=== PATIENT | male | born 1950 | race Caucasian/White ===

== ENCOUNTER 2018-02-28 13:50 | Day surgery (SDC) | payer MEDICARE, OTHER ==
[2018-02-28] MEDS ORDERED: Xylocaine 1% Vial 30 ML PF IJ ONE (13:51)
[2018-02-28] MEDS ORDERED: Sensorcaine 0.25% 10 ML IJ ONE (13:51)
[2018-02-28] MEDS ORDERED: DIPRIVAN 200 MG/20 ML IV ONE (13:51)
[2018-02-28] MEDS ORDERED: Lactated Ringers 1,000 ML IV ONE (14:54)
--- NOTE | 2018-02-28 16:20 | XRAY ---
Indication: Bilateral lumbar spine sympathetic nerve block. Intraoperative fluoroscopy was provided for 1 minute 32 seconds. 10 digital spot images submitted for interpretation demonstrates a posterior spinal needle tip projecting over the left L2 pedicle. A second posterior spinal needle projects over the anterior L3-L4 interspace with small amount of contrast injected for needle tip placement. Correlate with intraoperative findings/report.
--- NOTE | 2018-02-28 16:22 | XRAY ---
1 minute and 32 seconds fluoroscopy time in surgery for lumbar spine sympathetic nerve block.
== END 2018-02-28 16:10 | disposition home or self-care (01) ==
LOC: SDC-PAIN 13:50
PROVIDERS: ATTEND Psychiatry & Neurology Pain Medicine
DX: M79.671 Pain in right foot (principal); M47.896 Other spondylosis, lumbar region
CPT/HCPCS: 64520; 72020; 77003; J2001; J2704; Q9966

== ENCOUNTER 2018-04-11 11:10 | Day surgery (SDC) | payer MEDICARE, OTHER ==
[2018-04-11] MEDS ORDERED: Xylocaine-Mpf 2% 5 Ml Vial IJ ONE (11:11)
[2018-04-11] MEDS ORDERED: Depo-Medrol 40 MG/ML IM ONE (11:11)
[2018-04-11] MEDS ORDERED: DIPRIVAN 200 MG/20 ML IV ONE (11:11)
--- NOTE | 2018-04-11 14:42 | XRAY ---
Indication: L4-S1 bilateral MBB. Intraoperative fluoroscopy was provided for 28 seconds. 3 digital spot images submitted for interpretation demonstrates posterior spinal needle tips projecting over the expected course of the left and right L4-S1 nerve roots. Correlate with intraoperative findings/report.
--- NOTE | 2018-04-11 14:44 | XRAY ---
28 seconds fluoroscopy time in surgery for bilateral L4-S1 MBB.
[2018-04-11] MEDS ORDERED: Lactated Ringers 1,000 ML IV ONE (15:01)
== END 2018-04-11 14:05 | disposition home or self-care (01) ==
LOC: SDC-PAIN 11:10
PROVIDERS: ATTEND Psychiatry & Neurology Pain Medicine
DX: M46.1 Sacroiliitis, not elsewhere classified (principal); M47.817 Spondylosis without myelopathy or radiculopathy, lumbosacral region; Z79.899 Other long term (current) drug therapy
CPT/HCPCS: 64493; 64494; 72020; 77002; J1030; J2704

== ENCOUNTER 2018-07-04 11:55 | Day surgery (SDC) | payer MEDICARE, OTHER ==
[2018-07-04] MEDS ORDERED: Ketamine HCl 50 MG/ML IV ONE (11:56)
[2018-07-04] MEDS ORDERED: DIPRIVAN 200 MG/20 ML IV ONE (11:56)
[2018-07-04] MEDS ORDERED: Xylocaine 1% Vial 30 ML PF IJ ONE (11:56)
[2018-07-04] MEDS ORDERED: Marcaine 0.5% SDV 10 ML IJ ONE (11:56)
--- NOTE | 2018-07-04 14:14 | XRAY ---
50 seconds fluoroscopy time in surgery for bilateral L3 nerve block.
--- NOTE | 2018-07-04 14:16 | XRAY ---
Indication: Bilateral L3 nerve block. Intraoperative fluoroscopy was provided for 50 seconds. 4 digital spot images submitted for interpretation demonstrates left and right posterior needle tips projecting anterior to the presumed L3 segment. Small amount of contrast injected for needle tip placement. Correlate with intraoperative findings/report.
[2018-07-04] MEDS ORDERED: Lactated Ringers 1,000 ML IV ONE (15:40)
== END 2018-07-04 14:05 | disposition home or self-care (01) ==
LOC: SDC-PAIN 11:55
PROVIDERS: ATTEND Psychiatry & Neurology Pain Medicine
DX: G90.523 Complex regional pain syndrome I of lower limb, bilateral (principal); Z79.899 Other long term (current) drug therapy; I10 Essential (primary) hypertension; G47.30 Sleep apnea, unspecified; E78.5 Hyperlipidemia, unspecified
CPT/HCPCS: 64520; 72020; 77002; J2001; J2704; Q9967

== ENCOUNTER 2018-07-25 10:04 | Day surgery (SDC) | payer MEDICARE, OTHER ==
[2018-07-25] MEDS ORDERED: DIPRIVAN 200 MG/20 ML IV ONE (10:05)
[2018-07-25] MEDS ORDERED: Ketamine HCl 50 MG/ML IJ ONE (10:05)
[2018-07-25] MEDS ORDERED: Xylocaine 1% Vial 30 ML PF IJ ONE (10:05)
[2018-07-25] MEDS ORDERED: Xylocaine-Mpf 2% 5 Ml Vial IJ ONE (10:05)
[2018-07-25] MEDS ORDERED: Sensorcaine 0.25% 10 ML IJ ONE (10:05)
[2018-07-25] MEDS ORDERED: Lactated Ringers 1,000 ML IV ONE (12:44)
--- NOTE | 2018-07-25 13:16 | XRAY ---
Indication: L2/L3 nerve block. Intraoperative fluoroscopy was provided for 1 minute 6 seconds. 6 digital spot images submitted for interpretation demonstrates right posterior needle tips projecting just anterior to the L2 and L3 segments. Small amount of contrast injected for needle tip placement. Correlate with intraoperative findings/report.
--- NOTE | 2018-07-25 13:18 | XRAY ---
1 minute and 6 seconds fluoroscopy time in surgery for right sympathetic nerve block.
== END 2018-07-25 11:35 | disposition home or self-care (01) ==
LOC: SDC-PAIN 10:04
PROVIDERS: ATTEND Psychiatry & Neurology Pain Medicine
DX: G90.521 Complex regional pain syndrome I of right lower limb (principal); I10 Essential (primary) hypertension; E78.5 Hyperlipidemia, unspecified; G47.00 Insomnia, unspecified; G47.30 Sleep apnea, unspecified; L03.90 Cellulitis, unspecified
CPT/HCPCS: 64520; 72020; 77002; J2001; J2704; Q9966

== ENCOUNTER 2018-08-01 13:15 | Day surgery (SDC) | payer MEDICARE, OTHER ==
[2018-08-01] MEDS ORDERED: Ketamine HCl 50 MG/ML IV ONE (13:16)
[2018-08-01] MEDS ORDERED: Sensorcaine 0.25% 10 ML IJ ONE (13:16)
[2018-08-01] MEDS ORDERED: Xylocaine-Mpf 2% 5 Ml Vial IJ ONE (13:16)
[2018-08-01] MEDS ORDERED: DIPRIVAN 200 MG/20 ML IV ONE (13:16)
[2018-08-01] MEDS ORDERED: Lactated Ringers 1,000 ML IV ONE (14:28)
--- NOTE | 2018-08-01 16:27 | XRAY ---
42 seconds of fluoroscopy was used in surgery for lumbar sympathetic nerve block at levels L2 and L3.
--- NOTE | 2018-08-02 05:24 | XRAY ---
Indication: Lumbar sympathetic nerve block at 2 levels, L2 and L3. Intraoperative fluoroscopy was provided for 42 seconds. 2 AP and 2 lateral digital spot films were obtained. Posterior needle tips are seen projected at the anterior left lateral margin of the lower aspect of the L2 vertebra and the L3 vertebra. A small amount of contrast was then injected for needle tip placement. Correlate with intraoperative findings/report.
== END 2018-08-01 14:51 | disposition home or self-care (01) ==
LOC: SDC-PAIN 13:15
PROVIDERS: ATTEND Psychiatry & Neurology Pain Medicine
DX: G90.522 Complex regional pain syndrome I of left lower limb (principal); I10 Essential (primary) hypertension; E78.5 Hyperlipidemia, unspecified; G47.00 Insomnia, unspecified; G47.30 Sleep apnea, unspecified
CPT/HCPCS: 64520; 72100; 77002; J2704; Q9966

== ENCOUNTER 2019-02-06 14:20 | Day surgery (SDC) | payer MEDICARE, OTHER ==
[2019-02-06] MEDS ORDERED: Sensorcaine 0.25% 10 ML IJ ONE (14:21)
[2019-02-06] MEDS ORDERED: Xylocaine-Mpf 2% 5 Ml Vial IJ ONE (14:21)
[2019-02-06] MEDS ORDERED: Ketamine HCl 50 MG/ML ONE (15:14)
[2019-02-06] MEDS ORDERED: DIPRIVAN 200 MG/20 ML IV ONE (15:14)
[2019-02-06] MEDS ORDERED: Lactated Ringers 1,000 ML IV ONE (15:20)
--- NOTE | 2019-02-06 22:43 | XRAY ---
Indication: L2-L3 sympathetic nerve block. Intraoperative fluoroscopy was provided for 1 minute 35 seconds. 4 digital spot images submitted for interpretation demonstrates left posterior needle tip projecting just anterior to the L2-L3 interspace. Small amount of contrast injected for needle tip placement. Correlate with intraoperative findings/report.
--- NOTE | 2019-02-06 22:51 | XRAY ---
1 minute and 35 seconds fluoroscopy time in surgery for right L2-3 sympathetic nerve block.
== END 2019-02-06 16:27 | disposition home or self-care (01) ==
LOC: SDC-PAIN 14:20
PROVIDERS: ATTEND Psychiatry & Neurology Pain Medicine
DX: G90.521 Complex regional pain syndrome I of right lower limb (principal); E78.5 Hyperlipidemia, unspecified; G47.30 Sleep apnea, unspecified; I10 Essential (primary) hypertension; G47.00 Insomnia, unspecified; Z79.899 Other long term (current) drug therapy
CPT/HCPCS: 64520; 72020; 77002; 99100; J2704; Q9966

== ENCOUNTER 2019-02-20 12:16 | Day surgery (SDC) | payer MEDICARE, OTHER ==
[2019-02-20] MEDS ORDERED: Xylocaine 1% Vial 30 ML PF IJ ONE (12:17)
[2019-02-20] MEDS ORDERED: Marcaine MPF 0.25% 30 ML IJ ONE (12:17)
[2019-02-20] MEDS ORDERED: Xylocaine-Mpf 2% 5 Ml Vial IJ ONE (12:17)
[2019-02-20] MEDS ORDERED: DIPRIVAN 200 MG/20 ML IV ONE (13:11)
[2019-02-20] MEDS ORDERED: Ketamine HCl 50 MG/ML ONE (13:11)
--- NOTE | 2019-02-20 14:30 | XRAY ---
Indication: Left sympathetic lumbar nerve block. Intraoperative fluoroscopy was provided for 46 seconds. 4 digital spot images submitted for interpretation demonstrates left posterior needle tip projecting just anterior to the L2 segment inferiorly. Small amount of contrast injected for needle tip placement. Correlate with intraoperative findings/report.
--- NOTE | 2019-02-20 14:32 | XRAY ---
46 seconds fluoroscopy time in surgery for left sympathetic lumbar nerve block.
[2019-02-20] MEDS ORDERED: Lactated Ringers 1,000 ML IV ONE (17:04)
== END 2019-02-20 13:45 | disposition home or self-care (01) ==
LOC: SDC-PAIN 12:16
PROVIDERS: ATTEND Psychiatry & Neurology Pain Medicine
DX: G90.522 Complex regional pain syndrome I of left lower limb (principal); E78.5 Hyperlipidemia, unspecified; G47.30 Sleep apnea, unspecified; I10 Essential (primary) hypertension; M54.5 Low back pain; G47.00 Insomnia, unspecified; Z79.899 Other long term (current) drug therapy
CPT/HCPCS: 64520; 72020; 77002; 77003; 99100; J2001; J2704; Q9966

== ENCOUNTER 2019-07-17 09:14 | Day surgery (SDC) | payer MEDICARE, OTHER ==
[2019-07-17] MEDS ORDERED: Xylocaine 1% Vial 30 ML PF IJ ONE (09:15)
[2019-07-17] MEDS ORDERED: Sensorcaine 0.25% 10 ML IJ ONE (09:15)
[2019-07-17] MEDS ORDERED: Ketamine HCl 50 MG/ML ONE (10:33)
[2019-07-17] MEDS ORDERED: DIPRIVAN 200 MG/20 ML IV ONE ×2 (10:33→10:55)
--- NOTE | 2019-07-17 11:38 | XRAY ---
Indication: Right sympathetic nerve block. Intraoperative fluoroscopy was provided for 1 minute 29 seconds. 3 digital spot images submitted for interpretation demonstrates right-sided posterior needle tips projecting over just anterior to the L1-L2 and L2-L3 interspaces anteriorly. Small amount of contrast injected for needle tip placement. Correlate with intraoperative findings/report.
--- NOTE | 2019-07-17 13:05 | XRAY ---
1 minute and 29 seconds fluoroscopy time in surgery for right lumbar sympathetic nerve block.
[2019-07-17] MEDS ORDERED: Lactated Ringers 1,000 ML IV ONE (13:49)
== END 2019-07-17 11:20 | disposition home or self-care (01) ==
LOC: SDC-PAIN 09:14
PROVIDERS: ATTEND Psychiatry & Neurology Pain Medicine
DX: G90.521 Complex regional pain syndrome I of right lower limb (principal); E78.5 Hyperlipidemia, unspecified; I10 Essential (primary) hypertension; G47.30 Sleep apnea, unspecified; G47.00 Insomnia, unspecified; Z79.899 Other long term (current) drug therapy
CPT/HCPCS: 64520; 72100; 77002; 99100; J2001; J2704; Q9966

== ENCOUNTER 2019-10-16 11:54 | Day surgery (SDC) | payer MEDICARE, OTHER ==
[2019-10-16] MEDS ORDERED: Xylocaine 1% Vial 30 ML PF IJ ONE (11:55)
[2019-10-16] MEDS ORDERED: CEFAZOLIN 2 GM-D5W BAG** 2 GM/50 ML ML IV ONE (11:55)
[2019-10-16] MEDS ORDERED: Sodium Chloride 0.9(Preservative Free) 10 ML IJ ONE (11:55)
[2019-10-16] MEDS ORDERED: Ketamine HCl 50 MG/ML ONE (13:38)
[2019-10-16] MEDS ORDERED: DIPRIVAN 200 MG/20 ML IV ONE (13:38)
[2019-10-16] MEDS ORDERED: Lactated Ringers 1,000 ML IV ONE (14:41)
--- NOTE | 2019-10-16 15:13 | XRAY ---
Indication: Spinal cord stimulator. Intraoperative fluoroscopy was provided for 1 minute 54 seconds. 5 digital spot images submitted for interpretation demonstrates posterior epidural stimulator lead terminating approximately T9 level. Correlate with intraoperative findings/report.
--- NOTE | 2019-10-16 16:40 | XRAY ---
1 minute 54 seconds of fluoroscopy was used in surgery for a spinal cord stimulator.
== END 2019-10-16 15:06 | disposition home or self-care (01) ==
LOC: SDC-PAIN 11:54
PROVIDERS: ATTEND Psychiatry & Neurology Pain Medicine
DX: G90.523 Complex regional pain syndrome I of lower limb, bilateral (principal); E78.5 Hyperlipidemia, unspecified; G47.30 Sleep apnea, unspecified; I10 Essential (primary) hypertension; M54.5 Low back pain; G47.00 Insomnia, unspecified; Z79.899 Other long term (current) drug therapy
CPT/HCPCS: 63650; 72100; 77002; 99100; J0690; J2001; J2704; C1897

== ENCOUNTER 2020-12-26 20:49 | Emergency (ER) | payer MEDICARE, OTHER ==
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
[2020-12-26 21:36] LABS: Absolute Neutrophil Ct (ANC) 9.63 (1.4-6.9); BASOPHIL % 0.2 % (0.0-0.4); Basophil (Absolute #) 0.03 (0-0.4); Eosinophil % 1.7 % (0.00-5.0); Eosinophil (Absolute #) 0.21 (0-0.5); Hematocrit 45.2 % (42-50); Hemoglobin 15.1 gm/dl (12.5-18.0); Lymphocyte (Absolute #) 1.75 (1.0-4.6); Lymphocytes % 13.8 % (24.0-44.0); Mean Cell Volume 89.3 fl (78-100); Mean Corpuscular Hemoglobin 29.8 pg (26-32); Mean Corpuscular Hgb Concent. 33.4 g/dl (32-36); Mean Platelet Volume 9.5 fl (7.5-11.0); Monocyte (Absolute #) 1.08 (0.0-1.3); Monocytes % 8.5 % (0.0-12.0); Neutrophil % 75.8 % (36.0-66.0); Platelet Count 278 K/mm3 (150-450); Red Blood Count 5.06 M/mm3 (4.1-5.6); Red Cell Distribution Width 12.8 % (11.5-14.0); White Blood Count 12.7 K/mm3 (4.0-10.5)
[2020-12-26 21:47] LABS: ALBUMIN 4.6 g/dL (3.5-5.0); ALKALINE PHOSPHATASE 58 U/L (38-126); ANION GAP 15.4 MEQ/L (5-15); BLOOD UREA NITROGEN 21 mg/dL (9-20); CHLORIDE 103 mmol/L (98-107); Calcium 9.7 mg/dL (8.4-10.2); Carbon Dioxide 27 mmol/L (22-30); Creatinine 1 0.99 mg/dL (0.66-1.25); EST GLOMERULAR FILTRATION RATE > 60.0 ML/MIN; Glucose 114 mg/dL (74-106); LIPASE 201 U/L (23-300); Potassium 3.8 mmol/L (3.5-5.1); SGOT/AST 27 U/L (17-59); SGPT/ALT 21 U/L (0-50); SODIUM 141 mmol/L (137-145); Total Protein 7.4 g/dL (6.3-8.2)
[2020-12-26] MEDS ORDERED: MORPHINE SULFATE 4 MG INJ IV ONE (22:42)
[2020-12-26] MEDS ORDERED: Zofran 4 MG/2 ML VIAL IV ONE (22:42)
[2020-12-26] MEDS ORDERED: MORPHINE SULFATE 4 MG INJ ONE (22:43)
[2020-12-26] MEDS ORDERED: Zofran 4 MG/2 ML VIAL ONE (22:43)
[2020-12-26 23:08] VITALS: BP 142/82; PULSE 76
[2020-12-26 23:13] VITALS: O2SAT 96
--- NOTE | 2020-12-27 07:30 | XRAY ---
Indication: Pain following fall. Comparison: Dec 19, 2012. 3 view left knee demonstrates mild osteopenia, mild medial joint space narrowing, tiny patella/lateral condyle/tibial tuberosity spurring, small proximal tibial plateau bone island, and tiny posterior fabella. No other bony, articular, or soft tissue abnormalities.
--- NOTE | 2020-12-27 07:31 | XRAY ---
Indication: Pain following fall. Multiple contiguous axial images obtained through the cervical spine. Sagittal and coronal reformatted images obtained. Comparison: December 07, 2014. Axial images negative for acute fracture, suspicious bone lesions, or spinal canal stenosis. There remains mild/moderate multilevel degenerative endplate spurring and bilateral degenerative facet hypertrophy. Sagittal and coronal reformatted images demonstrates normal alignment again with C4-C6 disc space loss. No acute compression fracture, subluxation, or jump facet. Normal appearing craniocervical junction. Visualized noncontrasted soft tissues demonstrates interval enlarging left inferior thyroid hypodense nodule measuring 4.5 x 4.5 cm. Lung apices demonstrates mild dependent atelectasis. Base of the brain unremarkable. Impression: 1. Negative acute fracture/subluxation. 2. Again multilevel degenerative changes. 3. Enlarging left thyroid hypodense nodule. Thyroid sonogram may yield further information if clinically warranted. Comment: Preliminary interpretation made by C. No critical discrepancy.
--- NOTE | 2020-12-27 07:34 | XRAY ---
Indication: Pain following fall. Multiple contiguous axial images obtained through the chest without contrast. Comparison: None Lungs demonstrates mild bilateral dependent atelectasis, minimal bibasilar fibrosis/scarring, and a few tiny left lung calcified granulomas. No suspicious pulmonary mass, infiltrate, effusion, or pneumothorax. Heart is not enlarged. Aorta is normal in course and caliber. A few tiny left hilar calcified nodes. No pathologic mediastinal lymphadenopathy. Bony thorax intact with mild osteopenia and flowing osteophytes throughout the spine. Limited upper abdomen demonstrates tiny splenic calcified granuloma and cholecystectomy clips. Impression: 1. Scattered atelectasis/scarring, chronic bony findings, and old granulomatous disease. 2. Remaining CT chest without contrast exam is negative. Comment: Preliminary interpretation made by [facility]. No critical discrepancy.
--- NOTE | 2020-12-27 07:39 | XRAY ---
Indication: Pain following fall. Multiple contiguous axial images obtained through the lumbar spine. Sagittal and coronal reformatted images obtained. Comparison: None Osseous structures demineralized consistent with patient's age. There is mild/moderate multilevel degenerative endplate spurring and L2-L3/L4-S1 degenerative vacuum disc phenomena. Mild/moderate L3-S1 degenerative facet hypertrophy. Superior endplate L2 demonstrates acute fracture with minimal 10% vertebral height loss. L5 vertebral body demonstrates remote appearing compression deformity with 50-75% height loss. Left posterior epidural stimulator device and 2 epidural leads are present. Sagittal and coronal reformatted images demonstrates normal lumbar lordosis. L5-S1 degenerative disc space loss. Visualized noncontrasted soft tissues images mild scattered aortoiliac calcifications. Impression: 1. L2 superior endplate acute fracture as detailed. 2. Osteopenia, multilevel degenerative spondylosis, remote L5 compression fracture, and epidural stimulator device/leads in situ. Comment: Preliminary interpretation made by C. No critical discrepancy.
== END 2020-12-26 23:16 | disposition home or self-care (01) ==
LOC: ED 20:49
DX: S32.000A Wedge compression fracture of unspecified lumbar vertebra, initial encounter for closed fracture (principal); V80.919A Animal-rider injured in unspecified transport accident, initial encounter
CPT/HCPCS: 36000; 36415; 71250; 72125; 72131; 73562; 80053; 83690; 84484; 85025; 93005; 96374; 96375; 99284; J2270; J2405

== ENCOUNTER 2021-08-20 09:55 | Emergency (ER) | payer MEDICARE, OTHER ==
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
[2021-08-20] MEDS ORDERED: BABY ASPIRIN 81 MG CHEW PO ONE (10:32)
[2021-08-20 10:50] LABS: Absolute Neutrophil Ct (ANC) 3.99 x10^3/uL (1.4-6.9); Basophil (Absolute #) 0.03 x10^3/uL (0-0.4); Eosinophil % 2.6 % (0.00-5.0); Eosinophil (Absolute #) 0.16 x10^3/uL (0-0.5); Hemoglobin 14.8 g/dL (12.5-18.0); Lymphocytes % 19.6 % (24.0-44.0); Mean Cell Volume 88.3 fL (78-100); Mean Corpuscular Hemoglobin 30.4 pg (26-32); Mean Corpuscular Hgb Concent. 34.4 g/dL (32-36); Mean Platelet Volume 9.4 fL (7.5-11.0); Monocytes % 11.5 % (0.0-12.0); Neutrophil % 65.3 % (36.0-66.0); Platelet Count 231 x10^3/uL (150-450); Red Blood Count 4.87 x10^6/uL (4.1-5.6); Red Cell Distribution Width 12.4 % (11.5-14.0); White Blood Count 6.1 x10^3/uL (4.0-10.5)
--- NOTE | 2021-08-20 10:52 | XRAY ---
Indication: Chest pressure. Short of breath. Comparison: January 10, 2019. Portable chest again demonstrates normal heart and lungs with a few incidental tiny calcified granulomas. Bony thorax intact again with mild osteopenia and degenerative changes. New epidural stimulator leads terminate T9-T10.
[2021-08-20] MEDS ORDERED: BABY ASPIRIN 81 MG CHEW ONE (10:59)
[2021-08-20 11:05] LABS: ALBUMIN 4.3 g/dL (3.5-5.0); ALKALINE PHOSPHATASE 59 U/L (38-126); ANION GAP 12.2 MEQ/L (5-15); BLOOD UREA NITROGEN 19 mg/dL (9-20); CHLORIDE 103 mmol/L (98-107); Calcium 9.4 mg/dL (8.4-10.2); Carbon Dioxide 26 mmol/L (22-30); Creatinine 1 1.22 mg/dL (0.66-1.25); EST GLOMERULAR FILTRATION RATE > 60.0 ML/MIN; Glucose 118 mg/dL (74-106); NT PRO BNP 29.8 pg/mL (0-900); Potassium 4.1 mmol/L (3.5-5.1); SGOT/AST 25 U/L (17-59); SGPT/ALT 28 U/L (0-50); SODIUM 137 mmol/L (137-145); Total Protein 7.2 g/dL (6.3-8.2)
[2021-08-20] MEDS ORDERED: Sodium Chloride 0.9% 500 ML 500 ML IV ONE ×2 (11:40→11:45)
--- NOTE | 2021-08-20 12:47 | XRAY ---
Indication: Short of breath, chest pressure, and elevated d-dimer. Multiple contiguous axial images obtained through the chest using a 9 cc Isovue 370 contrast and PE protocol. Comparison: December 26, 2020. Good opacification of the pulmonary arteries to include the lobar and segmental branches. No pulmonary embolus. Heart again not enlarged. Aorta remains normal in course and caliber without aneurysm. Stable tiny left hilar calcified nodes. No pathologic mediastinal/hilar lymphadenopathy. Visualized left thyroid gland remains enlarged with 3.5 cm hypodense nodule/cyst. Lungs again demonstrate mild dependent atelectasis, minimal bibasilar fibrosis/scarring, and a few tiny left lung calcified granulomas. No new pulmonary mass, infiltrate, or effusion. Bony thorax intact again with mild osteopenia, flowing osteophytes throughout spine, and epidural stimulator leads. Limited upper abdomen again demonstrates fatty liver, splenic calcified granulomas, and cholecystectomy clips. Impression: 1. Negative pulmonary embolus. No new/acute cardiopulmonary abnormalities. 2. Remaining CT chest unchanged again demonstrating scattered atelectasis/scarring, left thyroid hypodense nodule/cyst, chronic bony findings, and old granulomatous disease.
[2021-08-20 13:18] VITALS: BP 146/92; PULSE 64; O2SAT 96
== END 2021-08-20 13:23 | disposition home or self-care (01) ==
LOC: ED 09:55
DX: R07.89 Other chest pain (principal); R53.83 Other fatigue; I10 Essential (primary) hypertension; Z79.891 Long term (current) use of opiate analgesic; Z79.899 Other long term (current) drug therapy
CPT/HCPCS: 36000; 36415; 71045; 71260; 80053; 83880; 84484; 85025; 85379; 93005; 94760; 99284; A9270-GY

== ENCOUNTER 2021-12-01 06:54 | Day surgery (SDC) | payer MEDICARE, OTHER ==
[2021-12-01] MEDS ORDERED: Depo-Medrol 40 MG/ML IM ONE (06:55)
[2021-12-01] MEDS ORDERED: LIDOCAINE HCL 2% 100 MG/5 ML IJ ONE (06:55)
[2021-12-01] MEDS ORDERED: DIPRIVAN 200 MG/20 ML IV ONE (08:40)
--- NOTE | 2021-12-01 10:39 | XRAY ---
Indication: Bilateral L4-S1 MBB. Intraoperative fluoroscopy provided for 16 seconds. Single digital spot image submitted for interpretation demonstrates posterior needle tips projecting over the expected left and right L4-S1 nerve roots. Correlate with intraoperative findings/report. Incidental partially visualized left epidural stimulator leads.
--- NOTE | 2021-12-01 10:55 | XRAY ---
16 seconds of fluoroscopy was used in surgery for a bilateral L4-S1 MBB.
[2021-12-01] MEDS ORDERED: Lactated Ringers 1,000 ML IV ONE (12:38)
== END 2021-12-01 09:05 | disposition home or self-care (01) ==
LOC: SDC-PAIN 06:54
PROVIDERS: ATTEND Psychiatry & Neurology Pain Medicine
DX: M47.816 Spondylosis without myelopathy or radiculopathy, lumbar region (principal); Z79.899 Other long term (current) drug therapy
CPT/HCPCS: 64493; 64494; 72020; 77002; J1030; J2704

== ENCOUNTER 2022-09-21 10:11 | Day surgery (SDC) | payer MEDICARE, OTHER ==
[2022-09-21] MEDS ORDERED: BUPIVACAINE 0.5% VIAL IJ ONE (10:12)
[2022-09-21] MEDS ORDERED: Depo-Medrol 40 MG/ML IM ONE (10:12)
[2022-09-21] MEDS ORDERED: DIPRIVAN 200 MG/20 ML IV ONE (11:58)
[2022-09-21] MEDS ORDERED: Lactated Ringers 1,000 ML IV ONE (13:11)
--- NOTE | 2022-09-21 18:29 | XRAY ---
Indication: Bilateral L4-S1 MBB. Intraoperative fluoroscopy provided for 21 seconds. Single digital spot image submitted for interpretation demonstrates posterior needle tips projecting over the expected left and right L4-S1 nerve roots. Correlate with intraoperative findings/report. Incidental partially visualized left epidural stimulator leads.
--- NOTE | 2022-09-21 18:56 | XRAY ---
21 seconds of fluoroscopy was used in surgery for a bilateral L4-S1 MBB.
== END 2022-09-21 12:25 | disposition home or self-care (01) ==
LOC: SDC-PAIN 10:11
PROVIDERS: ATTEND Psychiatry & Neurology Pain Medicine
DX: M47.816 Spondylosis without myelopathy or radiculopathy, lumbar region (principal); Z79.899 Other long term (current) drug therapy
CPT/HCPCS: 64493; 64494; 72020; 77002; J1030; J2704

== ENCOUNTER 2022-10-06 11:07 | Day surgery (SDC) | payer MEDICARE, OTHER ==
[2022-10-06] MEDS ORDERED: Depo-Medrol 40 MG/ML IM ONE (11:08)
[2022-10-06] MEDS ORDERED: BUPIVACAINE 0.5% VIAL IJ ONE (11:08)
[2022-10-06] MEDS ORDERED: LIDOCAINE HCL 1% 50 MG/5 ML VL PF IJ ONE (11:08)
[2022-10-06] MEDS ORDERED: DIPRIVAN 200 MG/20 ML IV ONE (13:40)
--- NOTE | 2022-10-06 15:02 | XRAY ---
Indication: Right L4-S1 RFA. Intraoperative fluoroscopy provided for 19 seconds. 3 digital spot images submitted for interpretation demonstrates posterior needle tip projecting over the expected right L4-S1 nerve roots. Correlate with intraoperative findings/report. Incidental partially visualized left epidural stimulator leads.
--- NOTE | 2022-10-06 15:07 | XRAY ---
19 seconds of fluoroscopy was used in surgery for a right L4-S1 RFA.
[2022-10-06] MEDS ORDERED: Lactated Ringers 1,000 ML IV ONE (15:36)
== END 2022-10-06 14:10 | disposition home or self-care (01) ==
LOC: SDC-PAIN 11:07
PROVIDERS: ATTEND Psychiatry & Neurology Pain Medicine
DX: M47.816 Spondylosis without myelopathy or radiculopathy, lumbar region (principal); Z79.899 Other long term (current) drug therapy
CPT/HCPCS: 64635; 64636; 72100; 77002; 99100; J1030; J2001; J2704

== ENCOUNTER 2022-10-12 07:06 | Day surgery (SDC) | payer MEDICARE, OTHER ==
[2022-10-12] MEDS ORDERED: BUPIVACAINE 0.5% VIAL IJ ONE (07:07)
[2022-10-12] MEDS ORDERED: Depo-Medrol 40 MG/ML IM ONE (07:07)
[2022-10-12] MEDS ORDERED: LIDOCAINE HCL 1% 50 MG/5 ML VL PF IJ ONE (07:07)
[2022-10-12] MEDS ORDERED: DIPRIVAN 200 MG/20 ML IV ONE (08:40)
--- NOTE | 2022-10-12 10:17 | XRAY ---
Indication: Left L4-S1 RFA. Intraoperative fluoroscopy provided for 31 seconds. 3 digital spot image submitted for interpretation demonstrates posterior needle tips projecting over the expected left L4-S1 nerve roots. Correlate with intraoperative findings/report.
--- NOTE | 2022-10-12 10:41 | XRAY ---
31 seconds of fluoroscopy was used in surgery for a left L4-S1 RFA.
[2022-10-12] MEDS ORDERED: Lactated Ringers 1,000 ML IV ONE (11:13)
== END 2022-10-12 09:15 | disposition home or self-care (01) ==
LOC: SDC-PAIN 07:06
PROVIDERS: ATTEND Psychiatry & Neurology Pain Medicine
DX: M47.816 Spondylosis without myelopathy or radiculopathy, lumbar region (principal); Z79.899 Other long term (current) drug therapy
CPT/HCPCS: 64635; 64636; 72100; 77002; J1030; J2001; J2704

== ENCOUNTER 2023-08-18 20:20 | Emergency (ER) | payer MEDICARE, OTHER ==
[2023-08-18 20:23] VITALS: TEMP 98
--- NOTE | 2023-08-18 20:23 | ERPHSYRPT ---
- History of Present Illness Time Seen by Provider: 08/18/23 20:23 Historian: patient Exam Limitations: no limitations Physician History: This is an overweight 73-year-old white male patient of nurse practitioner Anthony and he sees vocational rehabilitation supervisor Dr. Landeros who presents to the emergency department with intermittent anterior superior substernal midline mild ache that has been present for approximately 3 days. He had another episode that lasted little bit longer prior to arrival to the emergency department. He felt he better have things looked at. Patient has a history of atrial fibrillation and is on metoprolol and a single baby aspirin a day. He states he currently has no pain at this time. Patient states that he underwent a cardiac catheterization 1 year ago and no cardiac stents were necessary at that time. He has never been diagnosed with a myocardial infarction in the past. He does not have hyperlipidemia. He is a former smoker. Timing/Duration: day(s), intermittent Activities at Onset: none Quality: aching (Mild) Location: substernal, central Chest Pain Radiation: no radiation Severity of Pain-Max: mild Severity of Pain-Current: none Associated Symptoms: denies symptoms Nitro Today/Relief: no nitro taken today Aspirin Treatment Today: 81 mg x 1, provided at home Allergies/Adverse Reactions: NKA Adverse Reaction (Verified 08/20/21 10:03) Home Medications: Hydrocodone/APAP 5/325 [[place] 5/325 mg] 1 tab PO TID PRN 09/29/12 [History] Docusate Sodium [Stool Softener] 1 tab PO DAILY 12/07/14 [History] Lisinopril 20 mg [Zestril 20 MG] 20 mg PO DAILY 12/07/14 [History] Gabapentin 600 mg PO TID 12/26/20 [History] Metoprolol Tartrate 25 mg [Lopressor 25MG Tab] 1 tab PO BID 08/20/21 [History] Aspirin EC 81 mg [Ecotrin 81 mg] 1 tab PO DAILY 08/18/23 [History] Atorvastatin Calcium 1 tab PO HS 08/18/23 [History] Cholecalciferol (Vitamin D3) [Vitamin D3] 1 tab PO DAILY 08/18/23 [History] Cyanocobalamin 100 Mcg [Vitamin B-12 100 Mcg] 50 mcg PO DAILY 08/18/23 [History] Omeprazole 40 mg PO DAILY 08/18/23 [History] Polyethylene Glycol 3350 [Miralax] 17 gm PO DAILY 08/18/23 [History] Hx Tetanus, Diphtheria Vaccination/Date Given: No Hx Influenza Vaccination/Date Given: Yes Hx Pneumococcal Vaccination/Date Given: Yes Travel Risk - International Travel Have you traveled outside of the country in past 3 weeks: No - Emerging Infectious Disease Are you exhibiting symptoms associated with any current EIDs: No - Review of Systems Constitutional: No Symptoms Eyes: No Symptoms Ears, Nose, & Throat: No Symptoms Respiratory: No Symptoms Cardiac: Chest Pain (None now on arrival to emergency department) Abdominal/Gastrointestinal: No Symptoms Genitourinary Symptoms: No Symptoms Musculoskeletal: No Symptoms Skin: No Symptoms Neurological: No Symptoms Psychological: No Symptoms Endocrine: No Symptoms Hematologic/Lymphatic: No Symptoms Immunological/Allergic: No Symptoms All Other Systems: Reviewed and Negative - Past Medical History Pertinent Past Medical History: Yes Neurological History: Peripheral Neuropathy ENT History: No Pertinent History Cardiac History: Hypertension Respiratory History: No Pertinent History Endocrine Medical History: No Pertinent History Musculoskeletal History: Osteoarthritis GI Medical History: No Pertinent History History: No Pertinent History Psycho-Social History: No Pertinent History Male Reproductive Disorders: No Pertinent History Other Medical History: INTERNAL TENS FOR B FOOT PAIN AND NEUROPATHY. MULTIPLE ANKLE FRACTURES, TOTAL ANKLE IN THE L ANKLE. A-FIB. - Past Surgical History Past Surgical History: Yes Neuro Surgical History: No Pertinent History Cardiac: No Pertinent History Respiratory: No Pertinent History Gastrointestinal: Cholecystectomy Genitourinary: No Pertinent History Musculoskeletal: Orthopedic Surgery Male Surgical History: No Pertinent History Other Surgical History: total left ankle replacement 06/19/14. right ankle repair 07/08/14. surgery on jaw in 1968. surgery on right arm d/t fracture in 1968. surgical repair of bilateral ankles in 1968 - Social History Smoking Status: Former smoker Exposure to second hand smoke: No Drug Use: none Patient Lives Alone: No - Nursing Vital Signs Nursing Vital Signs: Initial Vital Signs Pulse Rate 64 08/18/23 20:15 Respiratory Rate 20 08/18/23 20:15 Blood Pressure 148/87 08/18/23 20:15 O2 Sat by Pulse Oximetry 95 08/18/23 20:15 Pain Scale Pain Intensity 0 - Physical Exam General Appearance: no apparent distress, alert, anxiety, obese Eye Exam: PERRL/EOMI, eyes nml inspection Ears, Nose, Throat Exam: normal ENT inspection, moist mucous membranes Neck Exam: normal inspection, non-tender, supple, full range of motion Respiratory Exam: normal breath sounds, lungs clear, airway intact, No chest tenderness, No respiratory distress Cardiovascular Exam: regular rate/rhythm, normal heart sounds, normal peripheral pulses Gastrointestinal/Abdomen Exam: soft, normal bowel sounds, No tenderness Rectal Exam: not done Back Exam: normal inspection, normal range of motion, No CVA tenderness, No vertebral tenderness Extremity Exam: normal inspection, normal range of motion, pelvis stable Neurologic Exam: alert, oriented x 3, cooperative, manager regulatory II-XII nml as tested, normal mood/affect, nml cerebellar function, nml station & gait, sensation nml Skin Exam: normal color, warm, dry Lymphatic Exam: No adenopathy SpO2 Interpretation: borderline oxygenation SpO2: 94 O2 Delivery: Room Air - Course Nursing assessment & vital signs reviewed: Yes EKG Interpreted by Me: RATE (65), NORMAL AXIS, NORMAL INTERVALS, Right Bundle Branch Block, Other (No acute ischemic changes on today's twelve-lead EKG. The QTc is 480. 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 STAT Care 08/18/23 20:30 Active EKG-ER Only STAT Care 08/18/23 20:29 Active IV Insertion STAT Care 08/18/23 20:29 Active Pulse Oximetry (ED) STAT Care 08/18/23 20:29 Active CHEST 1 VIEW (PORTABLE) Stat Exams 08/18/23 20:29 Taken CBC W DIFF Stat Lab 08/18/23 20:34 Completed CMP Stat Lab 08/18/23 20:34 Completed D-DIMER QUANTITATIVE Stat Lab 08/18/23 20:34 Completed MAGNESIUM Stat Lab 08/18/23 20:34 Completed NT PRO BNPII Stat Lab 08/18/23 20:34 Completed PROTIME WITH INR Stat Lab 08/18/23 20:34 Completed TROPONIN Q4H Lab 08/18/23 20:34 Completed TROPONIN Q4H Lab 08/19/23 00:30 Ordered TROPONIN Q4H Lab 08/19/23 04:30 Ordered TROPONIN Stat Lab 08/18/23 23:01 Completed Medication Summary Discontinued Medications Generic Name Dose Route Start Last Admin Trade Name Adriana PRN Reason Stop Dose Admin Aspirin 243 mg 08/18/23 20:29 08/18/23 20:36 Aspirin 81 Mg Tab.Chew PO 08/18/23 20:30 243 mg STAT ONE Administration Aspirin Confirm 08/18/23 20:34 Aspirin 81 Mg Tab.Chew Administered 08/18/23 20:35 Dose 243 mg .ROUTE .STK-MED ONE Lab/Rad Data: Laboratory Result Diagrams 08/18/23 20:34 08/18/23 20:34 Laboratory Results 08/18/23 08/18/23 08/18/23 Range/Units 23:01 20:34 20:34 WBC (4.23-9.07) x10^3/uL RBC (4.63-6.08) x10^6/uL Hgb (13.7-17.5) g/dL Hct (40.1-51.0) % MCV (79.0-92.2) fL MCH (25.7-32.2) pg MCHC (32.3-36.5) g/dL RDW (11.6-14.4) % Plt Count (163-337) x10^3/uL MPV (9.4-12.4) fL Gran % (34.0-67.9) % Immature Gran % (Auto) (0.001-0.429) % Nucleat RBC Rel Count (0.00-0.2) % Eos # (Auto) (0.04-0.54) x10^3/uL Immature Gran # (Auto) (0.001-0.031) x10^3u/L Absolute Lymphs (auto) (1.32-3.57) x10^3/uL Absolute Monos (auto) (0.30-0.82) x10^3/uL Absolute Nucleated RBC (0.00-0.012) x10^3u/L Lymphocytes % (21.8-53.1) % Monocytes % (5.3-12.2) % Eosinophils % (0.8-7.0) % Basophils % (0.2-1.2) % Absolute Granulocytes (1.78-5.38) x10^3/uL Basophils # (0.01-0.08) x10^3/uL PT 10.3 (9.4-12.5) SECONDS INR 0.94 (0.8-3.0) D-Dimer 0.47 (0.0-0.50) mg/L Sodium (135-145) mmol/L Potassium (3.5-5.1) mmol/L Chloride (98-107) mmol/L Carbon Dioxide (22-30) mmol/L Anion Gap (5-15) MEQ/L BUN (9-20) mg/dL Creatinine (0.66-1.25) mg/dL Estimated GFR ML/MIN Glucose (74-106) mg/dL Calcium (8.4-10.2) mg/dL Magnesium (1.6-2.3) mg/dL Total Bilirubin (0.2-1.3) mg/dL AST (17-59) U/L ALT (0-50) U/L Alkaline Phosphatase (38-126) U/L Troponin I < 0.012 < 0.012 (0.000-0.033) ng/mL NT-Pro-B Natriuret Pep 33.6 (<300) pg/mL Serum Total Protein (6.3-8.2) g/dL Albumin (3.5-5.0) g/dL 08/18/23 08/18/23 Range/Units 20:34 20:34 WBC 6.5 (4.23-9.07) x10^3/uL RBC 4.85 (4.63-6.08) x10^6/uL Hgb 14.3 (13.7-17.5) g/dL Hct 41.4 (40.1-51.0) % MCV 85.4 (79.0-92.2) fL MCH 29.5 (25.7-32.2) pg MCHC 34.5 (32.3-36.5) g/dL RDW 12.4 (11.6-14.4) % Plt Count 254 (163-337) x10^3/uL MPV 9.6 (9.4-12.4) fL Gran % 67.9 (34.0-67.9) % Immature Gran % (Auto) 0.5 H (0.001-0.429) % Nucleat RBC Rel Count 0.0 (0.00-0.2) % Eos # (Auto) 0.23 (0.04-0.54) x10^3/uL Immature Gran # (Auto) 0.03 (0.001-0.031) x10^3u/L Absolute Lymphs (auto) 1.31 L (1.32-3.57) x10^3/uL Absolute Monos (auto) 0.47 (0.30-0.82) x10^3/uL Absolute Nucleated RBC 0.00 (0.00-0.012) x10^3u/L Lymphocytes % 20.2 L (21.8-53.1) % Monocytes % 7.3 (5.3-12.2) % Eosinophils % 3.6 (0.8-7.0) % Basophils % 0.5 (0.2-1.2) % Absolute Granulocytes 4.40 (1.78-5.38) x10^3/uL Basophils # 0.03 (0.01-0.08) x10^3/uL PT (9.4-12.5) SECONDS INR (0.8-3.0) D-Dimer (0.0-0.50) mg/L Sodium 140 (135-145) mmol/L Potassium 3.8 (3.5-5.1) mmol/L Chloride 107 (98-107) mmol/L Carbon Dioxide 23 (22-30) mmol/L Anion Gap 14.2 (5-15) MEQ/L BUN 21 H (9-20) mg/dL Creatinine 0.96 (0.66-1.25) mg/dL Estimated GFR 82.9 ML/MIN Glucose 141 H (74-106) mg/dL Calcium 9.3 (8.4-10.2) mg/dL Magnesium 1.6 (1.6-2.3) mg/dL Total Bilirubin 0.50 (0.2-1.3) mg/dL AST 18 (17-59) U/L ALT 20 (0-50) U/L Alkaline Phosphatase 68 (38-126) U/L Troponin I (0.000-0.033) ng/mL NT-Pro-B Natriuret Pep (<300) pg/mL Serum Total Protein 6.8 (6.3-8.2) g/dL Albumin 4.3 (3.5-5.0) g/dL - Progress Progress: improved, re-examined Air Movement: good Progress Note: 08/18/23 20:47 My medical decision making and the workup performed is based on review of the patient's past medical history, review of the patient's medication list, review the patient drug allergy list, history present illness and physical findings on examination. The workup in the patient clued placement of intravenous line, twelve-lead EKG, troponin level, D-dimer level, BNP level, CBC, CMP, magnesium level and chest x-ray. Differential diagnoses include but is not limited to pneumonia, muscle skeletal pain, myocardial infarction, electrolyte abnormalities, arrhythmias. 08/18/23 23:37 I interpreted patient's laboratory data results. The patient lab results do not show any acute, emergent medical issue. I also interpreted the patient's 3-madelaine r troponin level which is also normal. I interpreted the 3-hour twelve-lead EKG. It shows a heart rate of 62 bpm and right bundle branch block. This is no change from the twelve-lead EKG performed approximately 3 hours ago during this emergency room visit. The patient has no shortness of breath and he denies chest pain at the time of discharge. Patient has an appointment to see his vocational rehabilitation supervisor on 08/21/2023. 08/18/23 23:38 I interpreted the preliminary report on this patient's chest x-ray. Patient appears to have chronic changes without evidence of any acute cardiopulmonary process. 08/18/23 23:39 Blood Culture(s) Obtained: No Antibiotics given: No Counseled pt/family regarding: lab results, diagnosis, need for follow-up, rad results Medical Desision Making - Diagnostic Testing Diagnostic test were ordered, analyzed, and reviewed by me: Yes Radiological Interpretation: Interpreted by me - Risk of complications Low Risk: Low risk of morbidity from additional dx testing or treatment - Departure Departure Disposition: Home Clinical Impression: Nonspecific chest pain Condition: Stable Critical Care Time: No Referrals: JOSE ALFREDO PINK NP [Primary Care Provider] - Follow up/PCP as directed Additional Instructions: Your appointment to see your vocational rehabilitation supervisor on Monday morning, 08/21/2023. If symptoms recur, return to the emergency department for reevaluation and management. Call your medications as prescribed.
[2023-08-18] MEDS ORDERED: BABY ASPIRIN 81 MG CHEW ONE (20:34)
[2023-08-18] MEDS: BABY ASPIRIN 81 MG CHEW PO ONE (20:36)
[2023-08-18 20:38] LABS: BASOPHIL % 0.5 % (0.2-1.2); Basophil (Absolute #) 0.03 x10^3/uL (0.01-0.08); Eosinophil % 3.6 % (0.8-7.0); Eosinophil (Absolute #) 0.23 x10^3/uL (0.04-0.54); Hematocrit 41.4 % (40.1-51.0); Hemoglobin 14.3 g/dL (13.7-17.5); IMMATURE GRAN # 0.03 x10^3u/L (0.001-0.031); IMMATURE GRAN % 0.5 % (0.001-0.429); Lymphocyte (Absolute #) 1.31 x10^3/uL (1.32-3.57); Lymphocytes % 20.2 % (21.8-53.1); Mean Cell Volume 85.4 fL (79.0-92.2); Mean Corpuscular Hemoglobin 29.5 pg (25.7-32.2); Mean Corpuscular Hgb Concent. 34.5 g/dL (32.3-36.5); Mean Platelet Volume 9.6 fL (9.4-12.4); Monocyte (Absolute #) 0.47 x10^3/uL (0.30-0.82); Monocytes % 7.3 % (5.3-12.2); Neutrophil % 67.9 % (34.0-67.9); Platelet Count 254 x10^3/uL (163-337); Red Blood Count 4.85 x10^6/uL (4.63-6.08); Red Cell Distribution Width 12.4 % (11.6-14.4); White Blood Count 6.5 x10^3/uL (4.23-9.07)
[2023-08-18 20:52] LABS: D-DIMER QUANTITATIVE 0.47 mg/L (0.0-0.50); INR 0.94 (0.8-3.0); PROTIME 10.3 SECONDS (9.4-12.5)
[2023-08-18 20:54] LABS: ALBUMIN 4.3 g/dL (3.5-5.0); ANION GAP 14.2 MEQ/L (5-15); BILIRUBIN,TOTAL 0.5 mg/dL (0.2-1.3); Calcium 9.3 mg/dL (8.4-10.2); Creatinine 1 0.96 mg/dL (0.66-1.25); EST GLOMERULAR FILTRATION RATE 82.9 ML/MIN; MAGNESIUM 1.6 mg/dL (1.6-2.3); Potassium 3.8 mmol/L (3.5-5.1); Total Protein 6.8 g/dL (6.3-8.2)
[2023-08-18 21:05] LABS: NT PRO BNPII 33.6 pg/mL (<300); TROPONIN < 0.012 ng/mL (0.000-0.033)
[2023-08-18 23:20] VITALS: BP 137/81; PULSE 62; RESP 17
[2023-08-18 23:40] VITALS: O2SAT 94
--- NOTE | 2023-08-19 07:16 | XRAY ---
Indication: Chest pain. Comparison: August 20, 2021 Portable chest remains inflated and clear with a few incidental tiny calcified granulomas. Heart not enlarged. Bony thorax intact again with osteopenia, mild degenerative changes, and epidural leads terminating T9-T10. Impression: Continued nonacute chest with chronic features.
== END 2023-08-18 23:55 | disposition home or self-care (01) ==
LOC: ED 20:20
DX: R07.9 Chest pain, unspecified (principal); Z79.899 Other long term (current) drug therapy
CPT/HCPCS: 36000; 36415; 71045; 80053; 83735; 83880; 84484; 85025; 85379; 85610; 93005; 93041; 94760; 99284; A9270-GY

== ENCOUNTER 2024-10-07 11:34 | Emergency (ER) | payer MEDICARE, OTHER ==
[2024-10-07 11:54] VITALS: RESP 16; TEMP 97
--- NOTE | 2024-10-07 13:01 | ERPHSYRPT ---
- History of Present Illness Time Seen by Provider: 10/07/24 11:40 Source: patient Exam Limitations: no limitations Patient Subjective Stated Complaint: patient stated that he is experiencing constipation and noticed when he went to the bathroom this morning he noticed blood after straining Triage Nursing Assessment: patient presents to ed with complaints of constipation, patient's abdomen soft, nontender, bowel sounds active x4 quadrants, no complaints of pain, skin N/W/D, vitals WNL Physician History: Patient is a 74-year-old male presents to our ED as a referral from his primary care provider for evaluation of rectal bleeding. Patient states that he felt bloated at home he thought he was constipated. Patient forced a small bowel movement and states that he had significant rectal bleeding at that time. No active bleeding at the moment. Patient states his abdominal pain has since significantly improved. No trauma no fever. Patient reports feeling lightheaded transiently at the time of the rectal bleeding but is currently asymptomatic. Patient otherwise feels well. He voices no other complaints or concerns at this time. Portions of this note were created with voice recognition technology. There may be grammatical, spelling, punctuation or sound alike errors Timing/Duration: today Severity: moderate Modifying Factors: Improves With: nothing Associated Symptoms: denies symptoms Allergies/Adverse Reactions: NKA Adverse Reaction (Verified 10/07/24 11:54) Home Medications: Hydrocodone/APAP 5/325 [Braggadocio 5/325 mg] 10 - 325 mg PO TID PRN 09/29/12 [History] Docusate Sodium [Stool Softener] 1 tab PO DAILY 12/07/14 [History] Gabapentin 600 mg PO TID 12/26/20 [History] Metoprolol Tartrate 25 mg [Lopressor 25MG Tab] 1 tab PO BID 08/20/21 [History] Aspirin EC 81 mg [Ecotrin 81 mg] 1 tab PO DAILY 08/18/23 [History] Atorvastatin Calcium 1 tab PO HS 08/18/23 [History] Cholecalciferol (Vitamin D3) [Vitamin D3] 25 mcg PO DAILY 08/18/23 [History] Cyanocobalamin 100 Mcg [Vitamin B-12 100 Mcg] 5,000 mcg PO DAILY 08/18/23 [History] Omeprazole 40 mg PO DAILY 08/18/23 [History] Polyethylene Glycol 3350 [Miralax] 17 gm PO DAILY 08/18/23 [History] Alpha Lipoic Acid 200 mg PO BID 10/07/24 [History] Amlodipine Besylate 5 mg [Norvasc 5 mg] 2.5 mg PO DAILY 10/07/24 [History] Meloxicam 7.5 mg PO DAILY PRN 10/07/24 [History] Hx Tetanus, Diphtheria Vaccination/Date Given: Yes Hx Influenza Vaccination/Date Given: Yes Hx Pneumococcal Vaccination/Date Given: Yes Travel Risk - International Travel Have you traveled outside of the country in past 3 weeks: No - Emerging Infectious Disease Are you exhibiting symptoms associated with any current EIDs: No - Review of Systems Constitutional: No Symptoms, No Fever, No Chills Eyes: No Symptoms Ears, Nose, & Throat: No Symptoms Respiratory: No Symptoms, No Cough, No Dyspnea Cardiac: No Symptoms, No Chest Pain, No Edema, No Syncope Abdominal/Gastrointestinal: No Symptoms, No Abdominal Pain, No Nausea, No Vomiting, No Diarrhea Genitourinary Symptoms: No Symptoms, No Dysuria Musculoskeletal: No Symptoms, No Back Pain, No Neck Pain Skin: No Symptoms, No Rash Neurological: No Symptoms, No Dizziness, No Focal Weakness, No Sensory Changes Psychological: No Symptoms Endocrine: No Symptoms Hematologic/Lymphatic: No Symptoms Immunological/Allergic: No Symptoms All Other Systems: Reviewed and Negative - Past Medical History Pertinent Past Medical History: Yes Neurological History: Peripheral Neuropathy ENT History: No Pertinent History Cardiac History: Hypertension Respiratory History: No Pertinent History Endocrine Medical History: No Pertinent History Musculoskeletal History: Osteoarthritis GI Medical History: No Pertinent History History: No Pertinent History Psycho-Social History: No Pertinent History Male Reproductive Disorders: No Pertinent History Other Medical History: INTERNAL TENS FOR B FOOT PAIN AND NEUROPATHY. MULTIPLE ANKLE FRACTURES, TOTAL ANKLE IN THE L ANKLE. A-FIB. - Past Surgical History Past Surgical History: Yes Neuro Surgical History: No Pertinent History Cardiac: No Pertinent History Respiratory: No Pertinent History Gastrointestinal: Cholecystectomy Genitourinary: No Pertinent History Musculoskeletal: Orthopedic Surgery Male Surgical History: No Pertinent History Other Surgical History: total left ankle replacement 06/19/14. right ankle repair 07/08/14. surgery on jaw in 1968. surgery on right arm d/t fracture in 1968. surgical repair of bilateral ankles in 1968 - Social History Smoking Status: Former smoker Exposure to second hand smoke: No Drug Use: none - Social Determinants of Health Will the patient participate in the screening: Yes Do you worry about a steady place to live?: No Do you have any problems with any of the following?: No known problems In the past 12 months,have you had to go without utilities?: No Transportation Issues: No Has anyone in your support network made you feel unsafe?: No Have you or anyone in your house had to go w/o enough food: No - Nursing Vital Signs Nursing Vital Signs: Initial Vital Signs Temperature 97 F 10/07/24 11:35 Pulse Rate 62 10/07/24 11:35 Respiratory Rate 16 10/07/24 11:35 Blood Pressure 146/89 10/07/24 11:35 O2 Sat by Pulse Oximetry 99 10/07/24 11:35 Pain Scale Pain Intensity 0 - Physical Exam General Appearance: no apparent distress, alert Eye Exam: PERRL/EOMI, eyes nml inspection Ears, Nose, Throat Exam: normal ENT inspection, TMs normal, pharynx normal, moist mucous membranes Neck Exam: normal inspection, full range of motion Respiratory Exam: normal breath sounds, lungs clear, No respiratory distress Cardiovascular Exam: regular rate/rhythm, normal heart sounds, normal peripheral pulses Gastrointestinal/Abdomen Exam: soft, normal bowel sounds, No tenderness, No mass Back Exam: normal inspection, normal range of motion, No CVA tenderness, No vertebral tenderness Extremity Exam: normal inspection, normal range of motion, pelvis stable Neurologic Exam: alert, oriented x 3, cooperative, normal mood/affect, sensation nml, No motor deficits Skin Exam: normal color, warm, dry, No rash Lymphatic Exam: No adenopathy SpO2 Interpretation: normal SpO2: 99 O2 Delivery: Room Air - Course Nursing assessment & vital signs reviewed: Yes - CT Exams Abdomen/Pelvis CT Interpretation: Tele-radiologist Report (Duodenal diverticulum, fecal impaction, T10 lytic lesion/hemangioma) Ordered Tests: Active Orders 24 hr Category Date Time Status IV Insertion STAT Care 10/07/24 12:27 Active ABDOMEN AND PELVIS W/0 CONTRAS [CT] Stat Exams 10/07/24 12:28 Completed CBC W DIFF Stat Lab 10/07/24 12:43 Completed CMP Stat Lab 10/07/24 12:43 Completed LIPASE Stat Lab 10/07/24 12:43 Completed UA W/RFX UR CULTURE Stat Lab 10/07/24 13:26 Completed Medication Summary Generic Name Dose Route Start Last Admin Trade Name Adriana PRN Reason Stop Dose Admin Sodium Chloride 1,000 mls @ 100 mls/hr 10/07/24 12:30 10/07/24 12:30 Sodium Chloride 0.9% 1000 Ml IV 11/06/24 12:29 100 mls/hr .Q10H EZEKIEL Administration Lab/Rad Data: Laboratory Result Diagrams 10/07/24 12:43 10/07/24 12:43 Laboratory Results 10/07/24 10/07/24 10/07/24 Range/Units 13:26 12:43 12:43 WBC 10.5 H (4.23-9.07) x10^3/uL RBC 5.11 (4.63-6.08) x10^6/uL Hgb 14.5 (13.7-17.5) g/dL Hct 44.2 (40.1-51.0) % MCV 86.5 (79.0-92.2) fL MCH 28.4 (25.7-32.2) pg MCHC 32.8 (32.3-36.5) g/dL RDW 13.3 (11.6-14.4) % Plt Count 233 (163-337) x10^3/uL MPV 10.0 (9.4-12.4) fL Gran % 83.4 H (34.0-67.9) % Immature Gran % (Auto) 0.6 H (0.001-0.429) % Nucleat RBC Rel Count 0.0 (0.00-0.2) % Eos # (Auto) 0.17 (0.04-0.54) x10^3/uL Immature Gran # (Auto) 0.06 H (0.001-0.031) x10^3u/L Absolute Lymphs (auto) 0.81 L (1.32-3.57) x10^3/uL Absolute Monos (auto) 0.66 (0.30-0.82) x10^3/uL Absolute Nucleated RBC 0.00 (0.00-0.012) x10^3u/L Lymphocytes % 7.7 L (21.8-53.1) % Monocytes % 6.3 (5.3-12.2) % Eosinophils % 1.6 (0.8-7.0) % Basophils % 0.4 (0.2-1.2) % Absolute Granulocytes 8.77 H (1.78-5.38) x10^3/uL Basophils # 0.04 (0.01-0.08) x10^3/uL Sodium 139 (135-145) mmol/L Potassium 4.2 (3.5-5.1) mmol/L Chloride 106 (98-107) mmol/L Carbon Dioxide 24 (22-30) mmol/L Anion Gap 13.6 (5-15) MEQ/L BUN 22 H (9-20) mg/dL Creatinine 0.89 (0.66-1.25) mg/dL Estimated GFR 89.4 ML/MIN Glucose 115 H (74-106) mg/dL Calcium 9.2 (8.4-10.2) mg/dL Total Bilirubin 0.70 (0.2-1.3) mg/dL AST 22 (17-59) U/L ALT 21 (0-50) U/L Alkaline Phosphatase 62 (38-126) U/L Serum Total Protein 7.4 (6.3-8.2) g/dL Albumin 4.6 (3.5-5.0) g/dL Lipase 199 (23-300) U/L Urine Color Yellow (Yellow) Urine Appearance Clear (Clear) Urine pH 5.5 (4.6-8.0) Ur Specific [place] 1.025 (1.005-1.030) Urine Protein Negative (Negative) Urine Glucose (UA) Negative (Negative) mg/dL Urine Ketones Trace A (Negative) Urine Blood Negative (Negative) Urine Nitrite Negative (Negative) Urine Bilirubin Negative (Negative) Urine Urobilinogen 1.0 A (0.2) mg/dL Ur Leukocyte Esterase Negative (Negative) U Hyaline Cast (Auto) NONE SEEN (0-2) /LPF Urine Microscopic RBC 0-2 (0-5) /HPF Urine Microscopic WBC 0-2 (0-5) /HPF Ur Epithelial Cells None Seen (None Seen) /HPF Urine Bacteria None Seen (None Seen) /HPF Urine Culture Reflexed NO (NO) - Progress Progress: improved Progress Note: 74-year-old male presents to our ED for evaluation of rectal bleeding. Patient states he force a bowel movement when bleeding occurred. No active bleeding during my exam. Rectal exam completed with KATHI Clark present. Laboratory workup essentially nonremarkable. CT abdomen pelvis reveals duodenal diverticulum fecal impaction T10 lytic lesion which compared to previous MRI appears to be a hemangioma. Patient had a large bowel movement after CT was completed. Patient states his symptoms resolved after the large bowel movement. Patient currently asymptomatic. Vitals are stable and essentially normal. No indication for further workup. Patient advised to follow-up with his primary care doctor within 48 hours to discuss the duodenal diverticulum the T10 lytic lesion and the need for further evaluation of the a forementioned findings. Patient understands the instructions he will follow-up with his primary care doctor tomorrow for a reevaluation. Portions of this note were created with voice recognition technology. There may be grammatical, spelling, punctuation or sound alike errors Complexity of problem addressed is moderate acute complicated. No critical care time. Complex of data reviewed and analyzed as moderate. Test ordered test reviewed results analyzed and correlated clinically with history and physical exam. Risk of complication and or risk of morbidity/mortality of patient management is low. Vital stable. Time spent to discharge patient is approximately 15 minutes. Plan of care established for shared decision making. No social determinants of health present to impede follow-up. Portions of this note were created with voice recognition technology. There may be grammatical, spelling, punctuation or sound alike errors 10/07/24 15:26 10/07/24 15:27 Counseled pt/family regarding: lab results, diagnosis, need for follow-up, rad results - Departure Departure Disposition: Home Clinical Impression: Constipation, Abdominal pain, Rectal bleeding, Duodenal diverticulum, T10 lytic lesion Condition: Stable Critical Care Time: No Referrals: JOSE ALFREDO PINK NP [[facility] Provider, [facility]] - Follow up/PCP as directed Additional Instructions: Discharge/Care Plan [email or web address] RESTREPO was seen on 10/07/24 in the Emergency Room. The patient was counseled regarding Diagnosis,Lab results, Imaging studies, need for follow up and when to return to the Emergency Room. Prescriptions given: Discharge Note I have spoken with the patient and/or caregivers. I have explained the patient's condition, diagnosis and treatment plan based on the information available to me at this time. I have answered the patient's and/or caregiver's questions and addressed any concerns. The patient and/or caregivers have as good understanding of the patient's diagnosis, condition and treatment plan as can be expected at this point. The vital signs have been stable. The patient's condition is stable and appropriate for discharge from the emergency department. The patient will pursue further outpatient evaluation with the primary care physician or other designated or consulting physician as outlined in the discharge instructions. The patient and/or caregivers are agreeable to this plan of care and follow-up instructions have been explained in detail. The patient and/or caregivers have received these instruction. The patient/and or caregivers are aware that any significant change in condition or worsening of symptoms should prompt an immediate return to this or the closest emergency department or call 911.
[2024-10-07 13:09] LABS: BASOPHIL % 0.4 % (0.2-1.2); Basophil (Absolute #) 0.04 x10^3/uL (0.01-0.08); Eosinophil (Absolute #) 0.17 x10^3/uL (0.04-0.54); Hematocrit 44.2 % (40.1-51.0); Hemoglobin 14.5 g/dL (13.7-17.5); IMMATURE GRAN # 0.06 x10^3u/L (0.001-0.031); IMMATURE GRAN % 0.6 % (0.001-0.429); Lymphocyte (Absolute #) 0.81 x10^3/uL (1.32-3.57); Mean Corpuscular Hemoglobin 28.4 pg (25.7-32.2); Mean Corpuscular Hgb Concent. 32.8 g/dL (32.3-36.5); Monocyte (Absolute #) 0.66 x10^3/uL (0.30-0.82); NUCLEATED RBC # 0.00 x10^3u/L (0.00-0.012); NUCLEATED RBC % 0.0 % (0.00-0.2); Platelet Count 233 x10^3/uL (163-337); Red Blood Count 5.11 x10^6/uL (4.63-6.08); White Blood Count 10.5 x10^3/uL (4.23-9.07)
[2024-10-07 13:12] LABS: Calcium 9.2 mg/dL (8.4-10.2); Carbon Dioxide 24.0 mmol/L (22-30); Creatinine 1 0.89 mg/dL (0.66-1.25); EST GLOMERULAR FILTRATION RATE 89.4 ML/MIN; Glucose 115.0 mg/dL (74-106); Potassium 4.2 mmol/L (3.5-5.1); SGOT/AST 22.0 U/L (17-59); SGPT/ALT 21.0 U/L (0-50); Total Protein 7.4 g/dL (6.3-8.2)
[2024-10-07 14:28] LABS: Glucose, Urine Negative (Negative); Protein,Urine Dip Negative (Negative); RBC 0-2 /HPF (0-5); WBC 0-2 /HPF (0-5)
--- NOTE | 2024-10-07 15:05 | XRAY ---
Indication: Pain. Constipation. Multiple contiguous axial images obtained through the abdomen and pelvis without contrast. Comparison: October 15, 2012 Lung bases clear of infiltrate or effusion. Again minimal scattered peripheral fibrosis/scarring. Heart not enlarged. Noncontrasted stomach and bowel loops appear nonobstructed. Enlarging 4 cm descending duodenal diverticulum. There is now moderate diffuse scattered colonic fecal debris with moderate rectal fecal impaction. Again cholecystectomy. No free fluid/air. Remaining liver, pancreas, spleen, adrenal glands, kidneys, ureters, and bladder are unremarkable for noncontrast exam. Worsening mild scattered aortoiliac calcifications without AAA. Osseous structures intact again with remote L5 compression fracture. Elsewhere there is now osteopenia, worsening mild/moderate multilevel thoracolumbar degenerative spondylosis, L2 vertebroplasty, and left lower back epidural generator with 2 epidural leads terminating T9-T10 interspace. T10 vertebral body demonstrates 1.7 x 1.4 x 1.8 cm well-circumscribed lytic lesion not previously included in field of view. Impression: 1. New moderate diffuse fecal stasis with rectal fecal impaction. 2. T10 lytic lesion not previously included. MRI lumbar spine June 22, 2023 demonstrates this to be hemangioma. 3. Chronic findings including pulmonary fibrosis/scarring, duodenal diverticulum, arteriosclerotic disease, and chronic bony findings.
[2024-10-07 15:30] VITALS: PULSE 66
[2024-10-07 15:44] VITALS: BP 144/92; O2SAT 98
== END 2024-10-07 15:43 | disposition home or self-care (01) ==
LOC: ED 11:34
DX: K59.00 Constipation, unspecified (principal); R10.9 Unspecified abdominal pain; K62.5 Hemorrhage of anus and rectum; K57.10 Diverticulosis of small intestine without perforation or abscess without bleeding; M89.9 Disorder of bone, unspecified; I10 Essential (primary) hypertension; Z79.899 Other long term (current) drug therapy